=== PATIENT | male | born 1980 | race Caucasian/White ===

== ENCOUNTER 2020-02-07 15:06 | Emergency (ER) | payer OTHER, SELFPAY ==
[2020-02-07 15:16] VITALS: BP 152/90; PULSE 87; RESP 20; TEMP 36.8; O2SAT 98
--- NOTE | 2020-02-07 15:32 | ED.ALLEREA ---
HPI - Allergic Reaction General Chief complaint: Allergic Reaction Stated complaint: POS Allergic reaction Source: patient Mode of arrival: ambulatory Limitations: no limitations History of Present Illness HPI narrative: Patient presents for evaluation after he was stung in the right hand by a yellow jacket approximately 30 minutes ago. He immediately took 50 mg of Benadryl orally. He currently reports some swelling and redness to the dorsal aspect of the right hand. Last year he was stung by a yellow jacket 3 times in 1 month. The first 2 of 3 times he did not have any type of reaction. However, following the third event he developed hives, and felt like he was having some restriction of his airway. He states he was treated in urgent care and epinephrine was administered. He was discharged with oral steroids. He currently denies any difficulty breathing or swallowing. He is right-hand dominant. Is not diabetic. No additional complaints or concerns. Related Data Home Medications Medication Instructions Recorded Confirmed Benadryl 02/07/20 Zyrtec 02/07/20 Allergies Allergy/AdvReac Type Severity Reaction Status Date / Time bee venom protein (honey bee) Allergy Unknown Anaphylactic Unverified 01/18/19 14:17 Shock Review of Systems Review of Systems: Narrative: CONSTITUTIONAL: Denies fever, chills, or sweats. EYES: Denies visual changes, redness, or discharge. ENT: Denies rhinorrhea, congestion, sore throat, or otalgia. CARDIOVASCULAR: Denies chest pain, palpitations, or edema. RESPIRATORY: Denies cough or dyspnea. GASTROINTESTINAL: Denies abdominal pain, nausea, vomiting, or diarrhea. GENITOURINARY: Denies dysuria or hematuria. SKIN: Denies rash or itching. Reports redness to the right hand MUSCULOSKELETAL: Denies back pain, joint pain. Reports swelling of the right hand NEUROLOGIC: Denies headache, numbness, dizziness, or weakness. PSYCHIATRIC: Denies anxiety or depression. [facility] Past Medical History Medical History (Updated 02/07/20 @ 16:26 by Braden Isidro, JENN, SILVIA) Environmental allergies Surgical History Surgical History (Updated 02/07/20 @ 15:35 by JENN Verde, SILVIA) H/O lateral meniscus repair of left knee Family History Family History Father Family history of premature coronary heart disease, Onset Age: 49 Patient's father is in good health Family history of cardiovascular disease Acute myocardial infarction Mother Patient's mother is in good health Sibling Patient's sister is in good health Patient's brother is in good health Other Diabetes mellitus Family history of Parkinson's disease Family history of coronary artery disease Family history of malignant neoplasm of breast in first degree relative Hypertension Social History Social History Smoking status: Never smoker Alcohol intake: current Alcohol use details: consumes a few drinks four nights per week Substance use: never Living arrangements: with family Gender identity (if verbalized by the patient): Male Sexual Orientation (if Verbalized by the Patient): Straight or Heterosexual Spiritual care concerns: No Exam Narrative: Exam Narrative: GENERAL: Well-appearing, well-nourished, and in no acute distress. HEAD: Normocephalic, atraumatic. EYES: PERRLA and EOMI. ENT: Nares clear, no rhinorrhea or epistaxis. Mucous membranes moist. Oropharynx without tonsillar hypertrophy exudate or other lesions. No posterior pharyngeal swelling. Bilateral TMs pearly salcedo nonbulging NECK: Supple. No adenopathy or masses. No carotid bruits or JVD CHEST: Clear to auscultation. No respiratory distress. No wheezes rales or rhonchi. No stridor. HEART: Regular rate and rhythm. No murmur heard. Normal peripheral pulses. ABDOMEN: Soft, nontender, nondistended, normal active bow
[2020-02-07] MEDS: methylPREDNISolone SOD SUCC 125 MG VIAL IM (15:39)
--- NOTE | 2020-02-07 15:46 | PC.NURSE ---
Ice pack applied to hand.
== END 2020-02-07 16:32 | disposition home or self-care (01) ==
PROVIDERS: Emergency Provider Nurse Practitioner
DX: T63.461A Toxic effect of venom of wasps, accidental (unintentional), initial encounter (principal)
CPT/HCPCS: 96372; 99213; G0463; J2930

== ENCOUNTER 2021-09-07 10:56 | Outpatient (CLI) | payer OTHER, SELFPAY ==
--- NOTE | ~2021-09-07 | XR_ITS ---
EXAMINATION: XR chest 2V DATE: 09/07/2021 11:23 INDICATION: Nonspecific lymphadenitis, unspecified. TECHNIQUE: Frontal and lateral views of the chest were obtained. COMPARISON: None. FINDINGS: The chest demonstrates clear lungs without pneumonia, pleural effusion, or pneumothorax. Th e heart size is normal. IMPRESSION: 1. No acute cardiopulmonary disease. Reviewed, dictated and finalized at location A.
== END 2021-09-07 10:57 | disposition home or self-care (01) ==
PROVIDERS: PCP Family Medicine; Visit Provider Family Medicine
DX: I88.9 Nonspecific lymphadenitis, unspecified (principal)
CPT/HCPCS: 71046

== ENCOUNTER 2025-03-08 08:20 | Emergency (ER) | payer BC, SELFPAY ==
[2025-03-08 08:27] VITALS: BP 141/80; PULSE 75; RESP 16; TEMP 36.4; O2SAT 100
[2025-03-08 08:57] LABS: EDSTREPNEGPOS1 Negative (Negative)
--- NOTE | 2025-03-08 08:58 | ED_ITS ---
HPI - URI/Sore Throat General Chief Complaint: Upper Respiratory Infection Stated Complaint: Sore Throat Time Seen by Provider: 03/08/25 08:44 Source: patient and RN notes reviewed Mode of arrival: ambulatory Limitations: no limitations History of Present Illness HPI Narrative: 44-year-old male patient presents today with 4 day history of sore throat and nasal congestion. Denies any additional symptoms. He has been taking allergy medication and ibuprofen with some mild relief and is currently pain-free. 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 Environmental allergies Surgical History Surgical History H/O lateral meniscus repair of left knee Family History Family History Father Family history of premature coronary heart disease, Onset Age: 49 Patient's father is in good health Family history of cardiovascular disease Acute myocardial infarction Mother Patient's mother is in good health Sibling Patient's sister is in good health Patient's brother is in good health Other Diabetes mellitus Family history of Parkinson's disease Family history of coronary artery disease Family history of malignant neoplasm of breast in first degree relative Hypertension Social History Social History Social History: Smoking status: Never smoker Second hand tobacco smoke exposure: No Alcohol intake: current Alcohol use details: consumes a few drinks four nights per week Substance use: never Substance use type: does not use Living arrangements: with family Occupation/Education: occupation Gender identity (if verbalized by the patient): Male Sexual Orientation (if Verbalized by the Patient): Straight or Heterosexual Spiritual care concerns: No Comments At time of signature, I have reviewed and agree with nursing past medical, surgical, social and family history unless otherwise noted. Please see nursing chart for further information. There is no relevant family history pertinent to the presenting complaint Exam Narrative: GENERAL: Well-appearing, well-nourished, and in no acute distress. HEAD: Normocephalic, atraumatic. EYES: EOMI. No redness or drainage. Conjunctivae normal. ENT: Mucous membranes pink and moist. Nares clear. No rhinorrhea. TMs normal bilaterally. Throat scantly erythematous without edema or exudate. Uvula midline. NECK: Normal AROM. Supple. 1 palpable lymph node of left anterior cervical chain. CHEST: No respiratory distress. Clear to auscultation. HEART: Regular rate and rhythm. No murmur appreciated. EXTREMITIES: Normal range of motion. No edema. SKIN: Warm, dry, no rash. Capillary refill normal. Normal skin turgor. NEURO: No focal deficits. Alert and oriented x3. Gait steady. PSYCH: Normal affect. No signs of depression or anxiety. Course Course Level of Care: Express Care Visit Vital Signs Vital signs: Vital Signs Temperature 97.5 F L 03/08/25 08:27 Pulse Rate 75 03/08/25 08:27 Respiratory Rate 16 03/08/25 08:27 Blood Pressure 141/80 H 03/08/25 08:27 Pulse Oximetry 100 03/08/25 08:27 Oxygen Delivery Room Air 03/08/25 08:27 Temperature 97.5 F L 03/08/25 08:27 Pulse Rate 75 03/08/25 08:27 Respiratory Rate 16 03/08/25 08:27 Blood Pressure 141/80 H 03/08/25 08:27 Pulse Oximetry 100 03/08/25 08:27 Oxygen Delivery Room Air 03/08/25 08:27 Reviewed MDM - URI/Sore Throat MDM Narrative Medical decision making narrative: 44-year-old male patient presents today with 4 day history of sore throat and nasal congestion. Denies any additional symptoms. He has been taking allergy medication and ibuprofen with some mild relief and is currently pain-free.Throat scantly erythematous without edema or exudate. Uvula midline. Rapid strep negative. Culture pending. Symptoms likely viral in etiology. Discussed [id number] medication use and duration of illness. No prescription medications indicated at this time. Anticipatory guidance given. Vital signs stable. Differential Diagnosis Differential diagnosis: Likely upper respiratory infection, otitis media, viral infection, pharyngitis and other (Strep throat) Lab Data Attestation: I reviewed the patient's lab results. Labs: Lab Results 03/08/25 Range/Units 08:56 POC Grp A Strep Screen Negative (Negative) Critical Care Time Critical Care Time Critical Care Time: No Discharge Plan Discharge Clinical Impression: Pharyngitis Qualifiers: Pharyngitis/tonsillitis etiology: unspecified etiology Qualified Code(s): J02.9 - Acute pharyngitis, unspecified Patient Disposition: Home Condition: Stable Instructions: Pharyngitis (ED) Additional Instructions: Your rapid strep swab was negative today at [facility]. You will be notified in a few days if the culture comes back positive for strep, and appropriate antibiotics will be called in for you at that time. Your symptoms are likely due to a viral illness, which is not treated with antibiotics. Viral symptoms can be present for up to 7-10 days. Take Tylenol or ibuprofen for fever or pain. Rest and stay hydrated. Follow up with your PCP in 7 days if symptoms are not improving. Go to the ER immediately if you have any difficulty breathing or swallowing. Patient Language: Russian Prescriptions: No Action No Home Medications Follow-up/Referrals: PHYSICIAN,HEALTH UNIT CLERK [Primary Care Provider, Internal Medicine] Time of Disposition: 09:01
== END 2025-03-08 09:03 | disposition home or self-care (01) ==
PROVIDERS: Emergency Provider Nurse Practitioner
DX: J02.9 Acute pharyngitis, unspecified (principal)
CPT/HCPCS: 87081; 87880; 99213; G0463